=== PATIENT | male | born 1995 | race Two or more races ===

== ENCOUNTER 2017-01-27 20:13 | Emergency (ER) | payer SELFPAY ==
[~2017-01-27] VITALS: Ht 182.9 cm; Wt 69.9 kg
[2017-01-27 20:37] VITALS: BP 127/83
[2017-01-27] MEDS ORDERED: DiphenhydrAMINE 50mg/ml Inj IVP ONE (21:00)
[2017-01-27] MEDS ORDERED: Metoclopramide 10mg/2ml Inj IVP ONE (21:00)
[2017-01-27 21:33] VITALS: BP 127/83
--- NOTE | 2017-01-27 23:52 | Emergency Room Report ---
History of Present Illness General Chief Complaint: Headache Source: Patient Present Illness HPI Patient is a 21-year-old male presented having worsening headache. Patient gradual onset of symptoms. Patient reported having prior history of migraines however he had not had any previous workup. Patient reported having had a gradual headache associated with some photophobia and nausea. He denied any vertigo sensation. Had a headache was worsened by light. He denied any recent trauma. He stated that he had recently traveled from [place] back to the [place]. Patient taken [id number] headache medications without relief. Allergies: Coded Allergies: No Known Allergies (Unverified , 01/27/17) Patient History Past Medical History: see triage record Reviewed Nursing Documentation: PMH: Agreed, PSxH: Agreed Review of Systems All Other Systems: negative except mentioned in HPI Physical Exam Vital Signs Date Time Temp Pulse Resp B/P (MAP) Pulse Ox O2 Delivery O2 Flow Rate FiO2 01/27/17 20:28 97.5 74 18 127/83 98 Room Air General Appearance: well appearing, no apparent distress, alert, GCS 15 Head: normocephalic, atraumatic ENT: hearing grossly normal, normal voice Neck: full range of motion, supple Respiratory: no respiratory distress, speaking full sentences Cardiovascular #1: normal inspection, normal peripheral pulses, regular rate, rhythm, no edema Musculoskeletal: normal inspection, back normal, no calf tenderness Neurologic: normal gait Psychiatric: mood/affect normal Skin: no rash Medical Decision Making Diagnostic Impression: Primary Impression: Headache ER Course Patient presented for headache. Differential diagnoses included but was not limited to skull fracture, subarachnoid hemorrhage, meningitis, aneurysm, mass lesion, intracranial hemorrhage.Because of complexity of patient's case laboratory testing and imaging studies were ordered. Medications studies were ordered however patient declined these imaging studies due to financial concerns and stated that he did not want further workup at this time. The patient was advised risk benefits alternatives of leaving AGAINST MEDICAL ADVICE and he indicated understanding and all questions are answered patient still continued want to leave and signed AGAINST MEDICAL ADVICE. Despite risks including but not limited to disability and worsening of current lifestyle. The patient was advised that we would perform studies without regard his ability to pay patient declined studies at this time. He appears to have capacity for refusal. All questions are answered. Last Vital Signs Date Time Temp Pulse Resp B/P (MAP) Pulse Ox O2 Delivery O2 Flow Rate FiO2 01/27/17 21:33 97.5 18 127/83 98 Room Air 01/27/17 20:28 74 Status: unchanged Disposition: AGAINST MEDICAL ADVICE Condition: Unknown Referrals: NOT CHOSEN IPA/MD,REFERRING (PCP) Patient Instructions: Tension Headache Priyank Fournier Jan 27, 2017 23:52
== END 2017-01-27 21:33 | disposition home or self-care (01) ==
LOC: EMR 20:47
DX: R51 Headache (principal); Z53.21 Procedure and treatment not carried out due to patient leaving prior to being seen by health care provider
CPT/HCPCS: 99282